=== PATIENT | male | born 2000 | race Two or more races ===

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

== ENCOUNTER 2022-03-18 10:01 | Emergency (ER) | payer OTHER ==
[~2022-03-18] VITALS: Ht 182.9 cm; Wt 74.8 kg
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
[2022-03-18] MEDS ORDERED: IBUPROFEN 600 MG TABLET PO ONE (11:30)
[2022-03-18] MEDS ORDERED: IBUP-1955 PO (11:32)
[2022-03-18] MEDS ORDERED: IBUPROFEN 600 MG TABLET ONE (11:34)
[2022-03-18 11:38] VITALS: BP 133/85
--- NOTE | 2022-03-18 11:38 | NUR ---
Patient discharged to home in stable condition. Written and verbal after care instructions given. Patient verbalizes understanding of instruction.
== END 2022-03-18 11:39 | disposition home or self-care (01) ==
LOC: ER 10:06
DX: S20.212A Contusion of left front wall of thorax, initial encounter (principal); W21.05XA Struck by basketball, initial encounter; Y93.67 Activity, basketball; Y92.89 Other specified places as the place of occurrence of the external cause; Y99.8 Other external cause status
CPT/HCPCS: 71045-TC

== ENCOUNTER 2022-12-10 12:28 | Emergency (ER) | payer MEDICAID ==
[~2022-12-10] VITALS: Ht 182.9 cm; Wt 74.8 kg
[~2022-12-10 12:28] MED LIST: IBUP-1955 PO
--- NOTE | 2022-12-10 13:01 | NUR ---
PT IN ROOM BREATHING IS EVEN AND UNLABORED. STATES THAT HE IS HAVING A HARD TIME BREATHING. 99% ON ROOM AIR. ENDORSES A DIAGNOSIS OF HYPERTHYROIDISM.
[2022-12-10 14:32] VITALS: BP 105/72
== END 2022-12-10 14:33 | disposition home or self-care (01) ==
LOC: ER 12:34
DX: R06.02 Shortness of breath (principal); E21.3 Hyperparathyroidism, unspecified; Z79.899 Other long term (current) drug therapy
CPT/HCPCS: 71045-TC

== ENCOUNTER 2023-09-15 16:01 | Emergency (ER) | payer MEDICAID ==
[~2023-09-15] VITALS: Ht 182.9 cm; Wt 74.8 kg
[2023-09-15 17:10] VITALS: BP 127/60; TEMP 98; O2SAT 99
[2023-09-15] MEDS ORDERED: GUAI-671 PO (17:55)
[2023-09-15] MEDS ORDERED: ALBU18HF2 INH (17:55)
== END 2023-09-15 19:22 | disposition home or self-care (01) ==
LOC: ER 16:07
DX: J06.9 Acute upper respiratory infection, unspecified (principal); E21.3 Hyperparathyroidism, unspecified; Z20.822 Contact with and (suspected) exposure to COVID-19
CPT/HCPCS: 99283; 87426; 87804 ×2; C9803